=== PATIENT | female | born 1965 | race Caucasian/White ===

== ENCOUNTER → 2018-04-10 10:20 | Outpatient (CLI) | payer OTHER, SELFPAY ==
[2018-04-10 12:48] LABS: Anion Gap 7 (5-15); BUN 17 mg/dL (7-18); BUN/Creat Ratio 24.2 RATIO (10-20); Calcium,Total 8.7 mg/dL (8.5-10.1); Chloride 104 mmol/L (98-107); EST Glomerular Filtration Rate 92 mL/min (>60); Est Glom Filt Rate - Afr Amer 112 mL/min (>60); Glucose 100 mg/dL (74-106); Potassium 4.1 mmol/L (3.5-5.1); Sodium Level 139 mmol/L (136-145); Thyroid Stim Hormone (TSH) 1.15 uIU/mL (0.358-3.74)
--- OUTSIDE RECORDS SUMMARY | 2018-06-05 05:59 | XMS RPT_ITS ---
:1965 Author Organization OHIP Care Team Providers Name Role Phone NELLIE LAO MD Admitting Unavailable NELLIE LAO MD Attending Unavailable NELLIE LAO MD Primary Care Unavailable NELLIE LAO MD Consulting Unavailable PROVIDER, UNKNOWN Consulting Unavailable PROVIDER, UNKNOWN Consulting Unavailable NELLIE LAO MD Admitting Unavailable NELLIE LAO MD Attending Unavailable NELLIE LAO MD Primary Care Unavailable NELLIE LAO MD Consulting Unavailable PROVIDER, UNKNOWN Consulting Unavailable PROVIDER, UNKNOWN Consulting Unavailable Nellie Lao Attending Unavailable Nellie Lao Referring Unavailable Nellie Lao Primary Care Unavailable PROBLEMS PROBLEMS DATE TYPE CONDITION / ATTENDING STATUS SOURCE CODE 01/01/2018 Admitting Encounter for NELLIE LAO Active Lillie Pomerene Diagnosis screening [facility] mammogram for [facility] malignant Repository neoplasm of breast / Z1231(ICD-10) 01/01/2018 Principle Encounter for NELLIE LAO Active Lillie Pomerene Diagnosis screening [facility] mammogram for [facility] malignant Repository neoplasm of breast / Z1231(ICD-10) PROCEDURES PROCEDURES No Procedure Records FoundRESULTS RESULTS BASIC METABOLIC Collected: 04/10/2018 Status: F Source: JONG PROFILE (BMP) 10:38 AM [facility] [place] CODE TESTS RESULT OUT OF RANGE REFERENCE UNITS LAB L501.0100 74-106 mg/dL Normal GLU 100 Result Comment: Fasting Glucose result from 100 to 125 mg/dL suggests IMPAIRED HOMEOSTASIS per A.D.A. criteria. Please note revised GLUCOSE reference range effective 2017. LAB L501.1000 7-18 mg/dL Normal BUN 17 LAB L501.1100 0.55-1.02 mg/dL Normal CREAT,SERUM 0.70 Result Comment: The validity of the calculated GFR AND GFRAA in patients over 70 years has not been determined. Clinical correlation is essential. LAB L501.1110 >60 mL/min Normal EST GFR 92 Result Comment: Non- GFR Calc LAB L501.1115 >60 mL/min Normal EST GFR - AA 112 Result Comment: GFR Calc LAB L501.1300 10-20 RATIO High BUN/CRE 24.2 LAB L501.2200 8.5-10.1 mg/dL CA Normal 8.7 LAB L501.5300 136-145 mmol/L NA Normal 139 LAB L501.5600 3.5-5.1 mmol/L K Normal 4.1 LAB L501.5900 98-107 mmol/L CL Normal 104 LAB L501.6100 21.0-32.0 mmol/L Normal CO2 28.0 LAB L501.6200 5-15 Normal GAP 7 Performed By: #### L500.2500, L501.9520 #### [facility] [address] [place], [place], [address] THYROID STIM HORMONE Collected: 04/10/2018 Status: F Source: JONG (TSH) 10:38 AM [facility] [place] CODE TESTS RESULT OUT OF RANGE REFERENCE UNITS LAB L501.9520 0.358-3.74 uIU/mL Normal TSH 1.15 Performed By: #### L500.2500, L501.9520 #### [facility] [address] [place], [address] MAMM DIGITAL BILAT Observed: 01/01/2018 Status: F Source: LILLIE MONTOYA SCREEN 3:[address] [facility] [address] [place], [place] [address] Patient: KISHA SORIANO Phone#: : 1965 Age: 52 Gender: F Pt. Type: Out Account: [id number] Location: 052 Ordering: NELLIE LAO Exam Date: 01/01/2018/15:03 Family Phys: Charge Code: [id number] Physician: [place] Order #: [id number] DLP Dose#: PROCEDURE: MAMM BILAT DIGITAL SCREENING WITH CAD COMPARISON: [facility] dated 1027 2014 and June 132013. INDICATIONS: Screening BREAST COMPOSITION: Scattered fibroglandular densities (25-50% glandular). FINDINGS: DIAGNOSTIC CATEGORY 1--NEGATIVE ASSESSMENT. RIGHT BREAST: No significant suspicious finding. No significant change has occurred. LEFT BREAST: No significant suspicious finding. No significant change has occurred. RECOMMENDATIONS: ROUTINE MAMMOGRAM AND CLINICAL EVALUATION. PLEASE NOTE: A NORMAL MAMMOGRAM DOES NOT EXCLUDE THE POSSIBILITY OF BREAST CANCER. A CLINICALLY SUSPICIOUS PALPABLE LUMP SHOULD BE BIOPSIED. THIS FACILITY UTILIZES A REMINDER SYSTEM TO ENSURE THAT ALL PATIENTS RECEIVE REMINDER LETTERS FOR APPOINTMENTS. THIS INCLUDES REMINDERS FOR ROUTINE MAMMOGRAMS, DIAGNOSITC MAMMOGRAMS, OR OTHER BREAST IMAGING INTERVENTIONS WHEN APPROPRIATE. THIS PATIENT WILL BE PLACED IN THE APPROPRIATE REMINDER SYSTEM. Dictated by: Kristin Vega MD on 01/16/2018 at 14:34 Approved by: Kristin Vega MD on 01/16/2018 at 14:34 ALLERGIES ALLERGIES DATE TYPE / CODE NAME / CODE REACTION SEVERITY SOURCE Miscellaneous No Known Drug Moderate Lillie Pomchad Allergy/[id number](S Allergies ([facility]) Modifier) Hospital (Qualifier Repository Value) ENCOUNTERS ENCOUNTERS ADMIT/DISCHARGE ACCOUNT ADMITTING ENCOUNTER LOCATION SOURCE NUMBER CLASS 04/10/2018 [id number] Ambulatory [address] ing:MTLAB Repository 01/01/2018/ [id number] PREFREN, Ambulatory Lillie Pomchad 8 [facility] Repository 05/13/2017/ [id number] PREFREN, Ambulatory Lillie Pomchad 8 [facility] Repository PAYERS PAYERS ENCOUNTER GUARANTOR PAYER SUBSCRIBER SOURCE 04/10/2018 PARIS Araujo Primary Insurance:VERÓNICA DASILVAB: Jong [id number] [facility] [id number] [address], Number: [facility] [place] [address]Rai: [id number] Repository Date:3689-01-43[address]OX (HP) [id number], [place] [address]JS: 04/10/2018 Secondary NOT GIVENUNK Jong Insurance:SELF PAY [facility] Number: Effective Repository Date:2018-04-10 01/01/2018 KISHA Acosta Primary Insurance:THE KISHA DASILVAB: Lillie DASILVAB: [facility] [id number] [facility] [id number] [address] Number: [address] [place] [address], Repository [address] [place] [id number] [id number] [place] [id number]: Date:[id number], [place] () [id number]: 05/13/2017 KISHA Acosta Primary Insurance:THE KISHA DASILVAB: Lillie GROVE: VERÓNICA [facility] [id number] Memorial [id number] [address] Number: [address] [place] [address], Repository [address] [place] [id number] [place] [id number] [place] [id number]: Date:[id number], [place] () [id number]:
== END ==
PROVIDERS: Family Provider Family Medicine; PCP Family Medicine; Referring Provider Family Medicine; Visit Provider Family Medicine
DX: I10 Essential (primary) hypertension (principal); E03.9 Hypothyroidism, unspecified
CPT/HCPCS: 36415; 80048; 84443

== ENCOUNTER → 2018-05-02 16:40 | Outpatient (CLI) | payer OTHER, SELFPAY ==
[2018-05-02 11:24] VITALS: BMI 47.0
== END ==
PROVIDERS: Family Provider Family Medicine; PCP Family Medicine; Referring Provider Physician Assistant Surgical; Visit Provider Physician Assistant Surgical
DX: J02.9 Acute pharyngitis, unspecified (principal)
CPT/HCPCS: 87081

== ENCOUNTER → 2018-10-01 13:13 | Outpatient (CLI) | payer OTHER, SELFPAY ==
[2018-05-02 11:24] VITALS: BMI 47.0
[2018-10-08 17:10] LABS: HPV HC, High Risk Negative (Negative)
== END ==
PROVIDERS: Family Provider Family Medicine; PCP Family Medicine; Visit Provider Family Medicine
DX: Z12.4 Encounter for screening for malignant neoplasm of cervix (principal)
CPT/HCPCS: 87624; 88175; G0145

== ENCOUNTER → 2019-04-30 09:57 | Outpatient (CLI) | payer OTHER, SELFPAY ==
[2019-04-02 16:02] VITALS: BMI 47.0
[2019-04-30 12:26] LABS: ALB/GLOB Ratio 0.9 RATIO (0.9-2.4); AST(SGOT) 21 U/L (15-37); Alanine Aminotransfer ALT/SGPT 29 U/L (13-56); Albumin, Serum 3.6 g/dL (3.2-5.0); Alkaline Phosphatase 80 U/L (45-117); Anion Gap 3 (5-15); BUN 15 mg/dL (7-18); BUN/Creat Ratio 20.1 RATIO (10-20); Calcium,Total 8.4 mg/dL (8.5-10.1); Chloride 104 mmol/L (98-107); Cholesterol 154 mg/dL (200); Creatinine, Serum 0.75 mg/dL (0.55-1.02); EST Glomerular Filtration Rate 86 mL/min (>60); Est Glom Filt Rate - Afr Amer 104 mL/min (>60); Globulin 3.9 g/dL (2.2-4.2); Glucose 101 mg/dL (74-106); High Density Lipoprotein 53 mg/dL; Potassium 3.9 mmol/L (3.5-5.1); Protein, Total 7.5 g/dL (6.4-8.2); Sodium Level 137 mmol/L (136-145); Thyroid Stim Hormone (TSH) 1.98 uIU/mL (0.358-3.74); Triglycerides 70 mg/dL; Very Low Density Lipoprotein 14 mg/dL (5-40)
[2019-04-30 12:27] LABS: Absolute Lymphocyte Count 1.53 X10^3/uL (0.83-4.51); Absolute Neutrophil Count 3.2 X10^3/uL (2.0-7.7); Basophil# 0.03 X10^3/uL; Basophil% 0.5 % (0-1); Eosinophil# 0.25 X10^3/uL; Eosinophils% 4.6 % (0-5); Hematocrit 40.9 % (37-47); Hemoglobin 13.4 g/dL (12.0-15.0); Lymphocyte # 1.53 X10^3/ul (4.0); Lymphocyte % 27.9 % (19-41); Mean Corp Hgb Conc 32.8 g/dL (32-36); Mean Corpuscular Hgb 28.6 pg (27.0-32.0); Mean Corpuscular Volume 87.2 fL (81-99); Mean Platelet Vol. 10.4 fl (6.2-12.0); Monocyte# 0.46 X10^3/uL; Monocyte% 8.4 % (0-10); NRBC Flagged by Analyzer 0 % (0-5); Neutrophil # 3.21 X10^3/uL (2.7-7.7); Neutrophil % 58.4 % (47-70); Platelet Count 277 K/mm3 (150-450); RBC Distribution Width CV 13.1 % (11.6-14.6); RBC Distribution Width SD 41.3 fl (35.1-43.9); Red Blood Count 4.69 M/mm3 (4.2-5.4); White Blood Count 5.5 K/mm3 (4.4-11.0)
== END ==
PROVIDERS: Family Provider Family Medicine; PCP Family Medicine; Referring Provider Family Medicine; Visit Provider Family Medicine
DX: I10 Essential (primary) hypertension (principal); E03.9 Hypothyroidism, unspecified; R73.01 Impaired fasting glucose
CPT/HCPCS: 36415; 80053; 80061; 84443; 85025

== ENCOUNTER → 2020-05-26 13:16 | Outpatient (CLI) | payer OTHER, SELFPAY ==
[2019-04-02 16:02] VITALS: BMI 47.0
[2020-05-26 15:05] LABS: Absolute Lymphocyte Count 1.59 X10^3/uL (0.83-4.51); Absolute Neutrophil Count 3.1 X10^3/uL (2.0-7.7); Basophil# 0.06 X10^3/uL; Basophil% 1.1 % (0-1); Eosinophil# 0.23 X10^3/uL; Eosinophils% 4.1 % (0-5); Hematocrit 42.3 % (37-47); Hemoglobin 13.5 g/dL (12.0-15.0); Lymphocyte # 1.59 X10^3/ul (4.0); Lymphocyte % 28.1 % (19-41); Mean Corp Hgb Conc 31.9 g/dL (32-36); Mean Corpuscular Volume 87.6 fL (81-99); Mean Platelet Vol. 10.8 fl (6.2-12.0); Monocyte# 0.64 X10^3/uL; Monocyte% 11.3 % (0-10); NRBC Flagged by Analyzer 0 % (0-5); Neutrophil # 3.11 X10^3/uL (2.7-7.7); Platelet Count 309 K/mm3 (150-450); RBC Distribution Width CV 13.2 % (11.6-14.6); RBC Distribution Width SD 42.6 fl (35.1-43.9); Red Blood Count 4.83 M/mm3 (4.2-5.4); White Blood Count 5.7 K/mm3 (4.4-11.0)
[2020-05-26 15:20] LABS: ALB/GLOB Ratio 0.9 RATIO (0.9-2.4); AST(SGOT) 19 U/L (15-37); Alanine Aminotransfer ALT/SGPT 28 U/L (13-56); Albumin, Serum 3.8 g/dL (3.2-5.0); Alkaline Phosphatase 90 U/L (45-117); Anion Gap 4 (5-15); BUN 16 mg/dL (7-18); BUN/Creat Ratio 20.1 RATIO (10-20); Calcium,Total 9.1 mg/dL (8.5-10.1); Chloride 102 mmol/L (98-107); EST Glomerular Filtration Rate 79 mL/min (>60); Est Glom Filt Rate - Afr Amer 96 mL/min (>60); Globulin 4.2 g/dL (2.2-4.2); Glucose 91 mg/dL (74-106); Potassium 4.2 mmol/L (3.5-5.1); Sodium Level 136 mmol/L (136-145)
== END ==
PROVIDERS: PCP Family Medicine; Visit Provider Family Medicine
DX: R73.01 Impaired fasting glucose (principal); E03.9 Hypothyroidism, unspecified; I10 Essential (primary) hypertension
CPT/HCPCS: 36415; 80053; 84443; 85025

== ENCOUNTER → 2020-12-20 15:52 | Outpatient (CLI) | payer OTHER, SELFPAY ==
[2019-04-02 16:02] VITALS: BMI 47.0
[2020-12-20 17:59] LABS: Anion Gap 8 (5-15); BUN 18 mg/dL (7-18); BUN/Creat Ratio 20.3 RATIO (10-20); Calcium,Total 8.9 mg/dL (8.5-10.1); Chloride 103 mmol/L (98-107); Creatinine, Serum 0.89 mg/dL (0.55-1.02); EST Glomerular Filtration Rate 70 mL/min (>60); Est Glom Filt Rate - Afr Amer 85 mL/min (>60); Glucose 105 mg/dL (74-106); Potassium 3.7 mmol/L (3.5-5.1); Sodium Level 138 mmol/L (136-145)
[2020-12-20 18:07] LABS: Vitamin B12 955 pg/mL (211-911); Vitamin D,25 Hydroxy 43.4 ng/mL
== END ==
PROVIDERS: PCP Family Medicine; Referring Provider Family Medicine; Visit Provider Family Medicine
DX: I10 Essential (primary) hypertension (principal); E55.9 Vitamin D deficiency, unspecified; E53.8 Deficiency of other specified B group vitamins
CPT/HCPCS: 36415; 80048; 82306; 82607

== ENCOUNTER → 2021-01-20 15:22 | Outpatient (CLI) | payer OTHER, SELFPAY | PROVIDERS: PCP Family Medicine; Referring Provider Nurse Practitioner Family; Visit Provider Nurse Practitioner Family | DX: U07.1 COVID-19 (principal) | CPT/HCPCS: 87635; U0005; U0003 ==

== ENCOUNTER 2021-12-06 12:40 | Emergency (ER) | payer OTHER, SELFPAY ==
[2021-12-06 12:40] VITALS: BP 134/98; PULSE 114; RESP 22; TEMP 37.4; O2SAT 97; BMI 49.3
--- NOTE | 2021-12-06 14:13 | VDLE_ITS ---
Reason For Study: Swelling RIGHT GSV is normal. CFV is compressible, spontaneous, phasic, competent and demonstrates normal augmentation. FV is compressible, spontaneous, phasic, competent and demonstrates normal augmentation. FV mid visualized with color only, patient unable to tolerate compression. POP V is compressible, spontaneous, phasic, competent and demonstrates normal augmentation. T/P Trunk is compressible. PTV is compressible. RT PerV is compressible. Procedure This is a venous duplex using B-mode, color flow and spectral Doppler. Exam performed portable in ED. A preliminary report was called and/or faxed to Bull. VL/Venous Duplex US, Unilateral Interpretation Summary Deep veins of the right lower extremity are patent and compressible segmentally . There is no evidence of right lower extremity deep vein thrombosis. The right great sapheno us vein appears patent and compressible segmentally. Limited due to intolerance of compression Ordering Physician: Garrett Pelayo Referring Physician: Nellie Lao Performed By: Shabana Yeager RVT
[2021-12-06 14:22] VITALS: TEMP 37.1
[2021-12-06] MEDS: Acetaminophen 500 MG Tablet 1000 MG PO (14:27)
--- NOTE | 2021-12-06 14:27 | EDS_ITS ---
HPI <LEVON Al - Last Filed: 12/06/21 16:01> History of Present Illness Chief Complaint: Lower Extremity Injury Narrative Narrative: 56-year-old female with history of obesity, hypothyroidism, CAD, hypertension, arthritis presents to the emergency department with 2 to 3 days of worsening pain to the right lower extremity. Patient developed right lower extremity pain 2 days ago, patient states that last evening after work she had redness to the right calf. Patient states that over the last 24 hours she has had sweats, had chills, and has felt fatigued. Patient denies any nausea or vomiting. Patient denies any chest pain or shortness of breath PFS <LEVON Al - Last Filed: 12/06/21 16:01> [facility] Medical History (Updated 12/06/21 @ 16:[address] Anselmo Bull MD) Hypertension Thyroid disease Home Medications citalopram 10 mg tablet 10 mg PO DAILY 05/02/18 [History Last Taken Unknown] levothyroxine 25 mcg capsule 25 mcg PO DAILY 05/02/18 [History Last Taken Unknown] lisinopril 10 mg tablet 10 mg PO DAILY 05/02/18 [History Last Taken Unknown] metoprolol tartrate 25 mg tablet 25 mg PO BID 05/02/18 [History Last Taken Unknown] albuterol sulfate 90 mcg/actuation aerosol inhaler 2 puff inhalation Q6H PRN shortness of breath or wheezing #8.5 grams 01/20/21 [Rx Last Taken Unknown] cholecalciferol (vitamin D3) 50 mcg (2,000 unit) capsule 50 mcg PO DAILY 03/28/21 [History Last Taken Unknown] vitamin B complex (B Complex-Vitamin B12 tablet) 1 tab PO DAILY 03/28/21 [History Last Taken Unknown] zinc 50 mg tablet 50 mg PO DAILY 03/28/21 [History Last Taken Unknown] cephalexin 500 mg capsule 500 mg PO Q6 #40 caps 12/06/21 [Rx Last Taken Unknown] sulfamethoxazole 800 mg-trimethoprim 160 mg tablet (Bactrim DS) 1 tab PO BID #20 tabs 12/06/21 [Rx Last Taken Unknown] Allergy/AdvReac Type Severity Reaction Status Date / Time No Known Allergies Allergy Verified 12/06/21 12:40 Family History (Updated 03/28/21 @ 14:59 by Radha Caba) Other Breast cancer Cancer Colon cancer Heart disease Surgical History History of delivery History of tonsillectomy Social History Smoking Status: Former smoker alcohol intake: never ROS <LEVON Al - Last Filed: 12/06/21 16:01> ROS ED ROS Narrative Constitutional: Negative for, weight loss, weakness. Positive fever and chills Eyes: Negative for vision loss, vision change, double vision ENT: Negative for any sore throat, ear pain, congestion Cardiovascular: Negative for any chest pain, tightness, palpitations Respiratory: Negative for any cough, sputum production, hemoptysis, dyspnea, dyspnea on exertion, orthopnea Gastrointestinal: Negative for any abdominal pain, nausea, vomiting, diarrhea, constipation, blood in stool, blood in vomit : Negative for any urinary frequency, dysuria, retention, blood in urine Muscle skeletal: Negative for any muscle joint pain, stiffness, myalgias, arthralgias, neck pain, back pain. Positive right leg pain Neurological: Negative for any headache, syncope, numbness or tingling, dizziness Skin: Negative for any rashes, lumps, itching, abrasions, lacerations. Positive for redness, pain to the right lower extremity Psychiatric: Negative for any depression, anxiety, stress, suicidal ideation, homicidal ideation Hematologic: Negative for any easy bruising, excessive bruising, easy bleeding Allergies: Negative for any eczema, hives, rash EXAM <LEVON Al - Last Filed: 12/06/21 16:01> Physical Exam Narrative Exam Narrative: Vital signs reviewed. Patient is tachycardic, fever greater than 100 HEET: Head normocephalic atraumatic, TMs clear bilaterally. Posterior pharynx is clear, moist mucous membranes. Nares clear bilaterally. Neck: Supple with no lymphadenopathy or tenderness. No signs of meningismus, negative jolt sign. Cardiac: Regular rate and rhythm no murmurs gallops or rubs, equal peripheral pulses bilaterally. Respiratory: Lungs clear to auscultation bilaterally. No chest tenderness. Abdomen: Soft, nontender, nondistended. No abdominal bruit or pulsatile masses. No hepatosplenomegaly Extremities: Patient has some venous insufficiency to bilateral lower extremities, patient's right lower extremity however shows some erythema, slight more edema, painful on palpation. Patient has neurologic and vascular intact. +2 pedal pulse. Patient has significant pain to the calf of the right lower extremity, this is more red, swollen, warm to touch. Physical examination is consistent with cellulitis, is circumferential. Neuro: Cranial nerves II through XII intact, no focal neurological deficits. Skin: Clean dry and intact with no rash, purpura, petechiae, vesicles or pustules. Backs/flank: No CVA tenderness, no midline spinal tenderness, no deformity. Psych: Normal mood and affect. No SI, HI or acute psychosis. Const Vital Signs: 12/06/21 12:40 12/06/21 14:22 12/06/21 14:26 Temperature 99.4 F H 98.7 F Temperature Source Temporal Oral Pulse Rate 114 H Respiratory Rate 22 H Blood Pressure 134/98 H Blood Pressure Mean 110 Pulse Ox 97 Oxygen Delivery Method Room Air Room Air 12/06/21 15:08 Temperature Temperature Source Pulse Rate 95 Respiratory Rate 16 Blood Pressure 122/73 H Blood Pressure Mean 89 Pulse Ox 96 Oxygen Delivery Method Room Air <Dr. Anselmo Bull MD - Last Filed: 12/06/21 16:31> Physical Exam Const Vital Signs: 12/06/21 12:40 12/06/21 14:22 12/06/21 14:26 Temperature 99.4 F H 98.7 F Temperature Source Temporal Oral Pulse Rate 114 H Respiratory Rate 22 H Blood Pressure 134/98 H Blood Pressure Mean 110 Pulse Ox 97 Oxygen Delivery Method Room Air Room Air 12/06/21 15:08 Temperature Temperature Source Pulse Rate 95 Respiratory Rate 16 Blood Pressure 122/73 H Blood Pressure Mean 89 Pulse Ox 96 Oxygen Delivery Method Room Air VICKY <LEVON Al - Last Filed: 12/06/21 16:01> VICKY Lab Data Labs: Laboratory Results - last 24 hr 12/06/21 12/06/21 12/06/21 14:40 14:40 14:40 WBC 7.8 RBC 4.35 Hgb 12.8 Hct 37.8 MCV 86.9 MCH 29.4 MCHC 33.9 RDW Std Deviation 42.4 RDW Coeff of Inez 13.4 Plt Count 263 MPV 10.8 Immature Gran % (Auto) 0.300 Neut % (Auto) 72.9 H Lymph % (Auto) 13.6 L [place] % (Auto) 11.7 H Eos % (Auto) 1.2 Baso % (Auto) 0.3 Absolute Neuts (auto) 5.7 Absolute Lymphs (auto) 1.06 Nucleated RBC % 0 Sodium 132 L Potassium 4.2 Chloride 100 Carbon Dioxide 25.0 Anion Gap 7 BUN 19 H Creatinine 0.97 Estim Creat Clear Calc 66.87 Est GFR (MDRD) Af Amer 76 Est GFR (MDRD) Non-Af 63 BUN/Creatinine Ratio 19.6 Glucose 112 H Lactic Acid 1.0 Calcium 9.1 Total Bilirubin 1.00 AST 17 ALT 20 Alkaline Phosphatase 84 Total Protein 7.7 Albumin 3.5 Globulin 4.2 Albumin/Globulin Ratio 0.8 L Patient appears well, patient appears nontoxic, vital signs are stable. Patient presents to the emergency department with complaints of fevers, feeling of chills, redness to her right lower extremity. Patient did receive a venous duplex which was negative. Patient's physical examination is consistent with cellulitis of the right lower extremity. I did obtain a septic work-up with 2 sets of blood cultures, patient CBC was unremarkable, patient's chemistries were unremarkable, patient's lactic acid was negative. At this time, I do not believe that the patient is in any form of sepsis. The patient received IV fluids, Tylenol, IV clindamycin. Patiently placed on Bactrim, Keflex for 10 days, she will follow-up closely with her PCP. She was given strict return precaution to return for any worsening redness, fever chills nausea vomiting Radiography Diagnostic Testing: Clinical Impression(s) from Imaging Studies Venous Doppler Study 12/06/21 14:13 Interpretation Summary Deep veins of the right lower extremity are patent and compressible segmentally. There is no evidence of right lower extremity deep vein thrombosis. The right great saphenous vein appears patent and compressible segmentally. Limited due to intolerance of compression Ordering Physician: Garrett Pelayo Referring Physician: Nellie Lao Performed By: Shabana Yeager RVT <Dr. Anselmo Bull MD - Last Filed: 12/06/21 16:31> [facility] MDM Narrative Medical decision making narrative: I have personally performed a face to face assessment of the patient and have reviewed the HARJEET Note. I performed a substantive portion of the visit including all aspects of the following. My genao findings include: History is remarkable for swelling redness right lower extremity. Patient does have history of venous stasis dermatitis. She reports shaking chills. She denies documented fever. There is no history of trauma. She denies history of VTE. patient presently denies cough or shortness of breath. She denies upper respiratory infectious symptoms. She denies GI or symptoms. Exam is remarkable for swelling of the right lower extremity with evidence of cellulitis. There is tenderness on the distribution deep venous system. Vital signs are marked for tachycardia and tachypnea. This may be due to sepsis. If patient has a DVT would need to consider PE. Medical Decision Making venous duplex rule out DVT, laboratory studies to determine if patient can be treated safely as an outpatient versus inpatient. Other additions or changes: Patient was treated with cephalexin and Bactrim for streptococcal and staphylococcal coverage. Patient is a candidate for outpatient therapy. Lab Data Labs: Laboratory Results - last 24 hr 12/06/21 12/06/21 12/06/21 14:40 14:40 14:40 WBC 7.8 RBC 4.35 Hgb 12.8 Hct 37.8 MCV 86.9 MCH 29.4 MCHC 33.9 RDW Std Deviation 42.4 RDW Coeff of Inez 13.4 Plt Count 263 MPV 10.8 Immature Gran % (Auto) 0.300 Neut % (Auto) 72.9 H Lymph % (Auto) 13.6 L [place] % (Auto) 11.7 H Eos % (Auto) 1.2 Baso % (Auto) 0.3 Absolute Neuts (auto) 5.7 Absolute Lymphs (auto) 1.06 Nucleated RBC % 0 Sodium 132 L Potassium 4.2 Chloride 100 Carbon Dioxide 25.0 Anion Gap 7 BUN 19 H Creatinine 0.97 Estim Creat Clear Calc 66.87 Est GFR (MDRD) Af Amer 76 Est GFR (MDRD) Non-Af 63 BUN/Creatinine Ratio 19.6 Glucose 112 H Lactic Acid 1.0 Calcium 9.1 Total Bilirubin 1.00 AST 17 ALT 20 Alkaline Phosphatase 84 Total Protein 7.7 Albumin 3.5 Globulin 4.2 Albumin/Globulin Ratio 0.8 L Radiography Diagnostic Testing: Clinical Impression(s) from Imaging Studies Venous Doppler Study 12/06/21 14:13 Interpretation Summary Deep veins of the right lower extremity are patent and compressible segmentally. There is no evidence of right lower extremity deep vein thrombosis. The right great saphenous vein appears patent and compressible segmentally. Limited due to intolerance of compression Ordering Physician: Garrett Pelayo Referring Physician: Nellie Lao Performed By: Shabana Yeager RVT Discharge Plan Triage Chief Complaint: Lower Extremity Injury ED Midlevel Provider: Garrett Pelayo ED Provider: Anselmo Bull Dx/Rx/DC Orders Clinical Impression: Cellulitis of leg, right, Hypothyroidism, Diabetes mellitus, type 2, Sinus tachycardia Instructions: Discharge Instructions for ..., ED Cellulitis Prescriptions: New cephalexin 500 mg capsule 500 mg PO Q6 Qty: 40 0RF sulfamethoxazole-trimethoprim [Bactrim DS] 800-160 mg tablet 1 tab PO BID Qty: 20 0RF No Action levothyroxine 25 mcg capsule 25 mcg capsule 25 mcg PO DAILY metoprolol tartrate 25 mg tablet 25 mg PO BID lisinopril 10 mg tablet 10 mg PO DAILY citalopram 10 mg tablet 10 mg PO DAILY albuterol sulfate 90 mcg/actuation HFA aerosol inhaler 2 puff inhalation Q6H PRN (Reason: shortness of breath or wheezing) Qty: 8.5 0RF zinc 50 mg tablet 50 mg PO DAILY cholecalciferol (vitamin D3) 50 mcg (2,000 unit) capsule 50 mcg PO DAILY vitamin B complex [B Complex-Vitamin B12] Tablet 1 tab PO DAILY Stand Alone Forms: ED Work / School Excuse Primary Care Provider: Nellie Lao Referrals: Nellie Lao MD [Primary Care Provider] - Activity Restrictions/Additional Instructions: You must return here for worsening redness, fever, chills. Print Language: Malian Disposition Disposition: Home, Self Care Discharge Date/Time: 12/06/21 16:18
[2021-12-06 15:04] LABS: Absolute Lymphocyte Count 1.06 X10^3/uL (0.83-4.51); Absolute Neutrophil Count 5.7 X10^3/uL (2.0-7.7); Basophil# 0.02 X10^3/uL; Basophil% 0.3 % (0-1); Eosinophil# 0.09 X10^3/uL; Eosinophils% 1.2 % (0-5); Hematocrit 37.8 % (37-47); Hemoglobin 12.8 g/dL (12.0-15.0); Lymphocyte # 1.06 X10^3/ul (0.83-4.51); Lymphocyte % 13.6 % (19-41); Mean Corp Hgb Conc 33.9 g/dL (32-36); Mean Corpuscular Hgb 29.4 pg (27.0-32.0); Mean Corpuscular Volume 86.9 fL (81-99); Mean Platelet Vol. 10.8 fl (6.2-12.0); Monocyte# 0.91 X10^3/uL; Monocyte% 11.7 % (0-10); NRBC Flagged by Analyzer 0 % (0-5); Neutrophil # 5.68 X10^3/uL (2.7-7.7); Neutrophil % 72.9 % (47-70); Platelet Count 263 K/mm3 (150-450); RBC Distribution Width CV 13.4 % (11.6-14.6); RBC Distribution Width SD 42.4 fl (35.1-43.9); Red Blood Count 4.35 M/mm3 (4.2-5.4); White Blood Count 7.8 K/mm3 (4.4-11.0)
[2021-12-06] MEDS: 0.9% Normal Saline 1,000 ML 999 ML IV (15:04)
[2021-12-06] MEDS: Clindamycin 900 MG/50 ML BAG 75 MG IV (15:06)
[2021-12-06 15:08] VITALS: BP 122/73; PULSE 95; RESP 16; O2SAT 96
[2021-12-06 15:23] LABS: ALB/GLOB Ratio 0.8 RATIO (0.9-2.4); AST(SGOT) 17 U/L (15-37); Alanine Aminotransfer ALT/SGPT 20 U/L (13-56); Albumin, Serum 3.5 g/dL (3.2-5.0); Alkaline Phosphatase 84 U/L (45-117); Anion Gap 7 (5-15); BUN 19 mg/dL (7-18); BUN/Creat Ratio 19.6 RATIO (10-20); Calcium,Total 9.1 mg/dL (8.5-10.1); Chloride 100 mmol/L (98-107); Creatinine, Serum 0.97 mg/dL (0.55-1.02); EST Glomerular Filtration Rate 63 mL/min (>60); Est Glom Filt Rate - Afr Amer 76 mL/min (>60); Estimated Creatinine Clearance 66.87 ml/min; Globulin 4.2 g/dL (2.2-4.2); Glucose 112 mg/dL (74-106); Potassium 4.2 mmol/L (3.5-5.1); Protein, Total 7.7 g/dL (6.4-8.2); Sodium Level 132 mmol/L (136-145)
== END 2021-12-06 16:18 | disposition home or self-care (01) ==
PROVIDERS: Nurse Practitioner; Emergency Provider Emergency Medicine; PCP Family Medicine; Visit Provider Emergency Medicine
DX: L03.115 Cellulitis of right lower limb (principal); Z68.42 Body mass index [BMI] 45.0-49.9, adult; E11.9 Type 2 diabetes mellitus without complications; I25.10 Atherosclerotic heart disease of native coronary artery without angina pectoris; I10 Essential (primary) hypertension; E03.9 Hypothyroidism, unspecified; R00.0 Tachycardia, unspecified; Z87.891 Personal history of nicotine dependence; E66.9 Obesity, unspecified; M19.90 Unspecified osteoarthritis, unspecified site; Z79.899 Other long term (current) drug therapy
CPT/HCPCS: 80053; 83605; 85025; 87040; 87086; 87088; 93971; 96365; 99282

== ENCOUNTER 2022-08-02 07:46 | Emergency (ER) | payer OTHER, SELFPAY ==
[2022-08-02 07:47] VITALS: BP 156/106; PULSE 108; RESP 22; TEMP 36.6; O2SAT 97; BMI 56.9
[2022-08-02 07:55] VITALS: BP 177/98; PULSE 97; RESP 20; TEMP 36.6; O2SAT 98
--- NOTE | 2022-08-02 07:55 | ED.VIS.DYS ---
HPI History of Present Illness Chief Complaint: Shortness of Breath Narrative Narrative: 57-year-old female here with lower extremity edema and shortness of breath worse over last 2 weeks. She notes exertional dyspnea, orthopnea and bilateral symmetric leg swelling from ankles up to her mid calf. She denies any unilateral leg swelling. The patient denies recent surgery in the last 4 weeks or immobilization in the last 3 days, denies previous diagnosis of DVT or PE, hemoptysis, unilateral leg swelling or malignancy with treatment the last 6 months. No estrogen use noted. She denies any bleeding diathesis. She denies any chest pain. Notes her father of heart attack at 57 years old. States she does not smoke she has not smoked in 2003. Denies any nausea or vomiting. Denies any abdominal pain. Denies any urinary symptoms. [facility] Medical History (Updated 08/02/22 @ 10:[address] Surendra Philippe, ) Hypertension Thyroid disease Urinary tract infection with hematuria Home Medications citalopram 10 mg tablet 10 mg PO DAILY 05/02/18 [History Last Taken Unknown] levothyroxine 25 mcg capsule 25 mcg PO DAILY 05/02/18 [History Last Taken Unknown] lisinopril 10 mg tablet 10 mg PO DAILY 05/02/18 [History Last Taken Unknown] metoprolol tartrate 25 mg tablet 25 mg PO BID 05/02/18 [History Last Taken Unknown] albuterol sulfate 90 mcg/actuation aerosol inhaler 2 puff inhalation Q6H PRN shortness of breath or wheezing #8.5 grams 01/20/21 [Rx Last Taken Unknown] cholecalciferol (vitamin D3) 50 mcg (2,000 unit) capsule 50 mcg PO DAILY 03/28/21 [History Last Taken Unknown] vitamin B complex (B Complex-Vitamin B12 tablet) 1 tab PO DAILY 03/28/21 [History Last Taken Unknown] zinc 50 mg tablet 50 mg PO DAILY 03/28/21 [History Last Taken Unknown] cephalexin 500 mg capsule 500 mg PO Q6 #40 caps 12/06/21 [Rx Last Taken Unknown] sulfamethoxazole 800 mg-trimethoprim 160 mg tablet (Bactrim DS) 1 tab PO BID #20 tabs 12/06/21 [Rx Last Taken Unknown] albuterol sulfate 90 mcg/actuation aerosol inhaler 2 puff inhalation Q6H PRN shortness of breath or wheezing #6.7 grams 06/24/22 [Rx Last Taken Unknown] cephalexin 500 mg tablet 500 mg PO Q8H 7 days #21 tabs 08/02/22 [Rx Last Taken Unknown] furosemide 20 mg tablet (Lasix) 20 mg PO DAILY #14 tabs 08/02/22 [Rx Last Taken Unknown] Allergy/AdvReac Type Severity Reaction Status Date / Time No Known Allergies Allergy Verified 08/02/22 07:46 Family History (Updated 03/28/21 @ 14:59 by Radha Caba) Other Breast cancer Cancer Colon cancer Heart disease Surgical History History of delivery History of tonsillectomy Social History Smoking Status: Former smoker alcohol intake: never ROS ROS ED ROS Narrative Constitutional: Denies fever HEENT: Denies sore throat Neck: Denies neck pain Cardiovascular: Denies chest pain, syncope Respiratory: Endorses shortness of breath GI: Denies nausea vomiting or abdominal pain : Denies changes in urinary habits Musculoskeletal: Denies muscle or joint pain Neurologic: Denies numbness weakness or loss of sensation Skin denies rash EXAM Physical Exam Narrative Exam Narrative: Nursing triage notes reviewed, Vital signs reviewed Constitutional: please see mdm HENT: MMM Eyes: Pupils equal round and reactive to light, Extraocular muscles intact Neck: No stridor, no JVD, full neck ROM Lungs: Clear to auscultation, No wheezing or rales. No increased work of breathing, no conversational dyspnea, no accessory muscle use, no nasal flaring. No respiratory distress noted Heart: Regular rate and rhythm, No murmurs, No rubs and No gallops, 2+ distal pulses (radial, femoral, posterior tibial) in all extremities Abdomen: Soft, there is no tenderness, rigidity, rebound or guarding, no obvious peritoneal signs, no palpable pulsatile abdominal masses, no auscultated abdominal bruit : No CVAT Extremities: No edema Neuro: No focal neurological deficits, cranial nerves II through XII intact, 5/5 strength in all extremities. Intact sensation to light touch in all extremities, 2+ reflexes bilateral patella dens. Normal gait. No ataxia. Skin: No rash or lesions noted Const Vital Signs: 08/02/22 07:47 08/02/22 07:55 08/02/22 07:55 Temperature 98 F 98 F Temperature Source Temporal Temporal Pulse Rate 108 H 97 Respiratory Rate 22 H 20 H Respiratory Effort Short of Breath Labored Respiratory Depth Normal Respiratory Pattern Normal Blood Pressure 156/106 H 177/98 H Blood Pressure Mean 122 124 Pulse Ox 97 98 Oxygen Delivery Method Room Air Room Air Room Air 08/02/22 09:46 Temperature Temperature Source Pulse Rate Respiratory Rate Respiratory Effort Respiratory Depth Respiratory Pattern Blood Pressure Blood Pressure Mean Pulse Ox 96 Oxygen Delivery Method Room Air MDM MDM MDM Narrative Medical decision making narrative: Chief Complaint: Shortness of breath External records reviewed: Last stress test 2012, no recent ED visits or hospitalizations noted in our chart I considered the following differential diagnosis: COPD exacerbation, pneumonia, heart failure, ACS, arrhythmia, PE, anemia Patient was initially tachycardic tachypneic and hypertensive she was afebrile. Lung exam was more consistent with obstructive lung pathology however patient denied any issues with COPD, asthma or bronchitis in the past. I obtained a broad lab and imaging work-up to further elucidate etiology patient complaints. I had a low suspicion for pulmonary embolism given low risk Wells score despite the patient's initial tachycardia. I was more concerned about heart failure and COPD. Labs images were remarkable for no evidence of myocardial ischemia. EKG had no arrhythmia or ischemia. No significant anemia or electrolyte abnormalities. The patient's BNP was elevated this consistent with a volume overloaded state however the patient's chest x-ray showed no evidence of pulmonary edema. She ambulated here without significant hypoxia. Given the patient elevated BNP and bilateral lower extremity edema I did start the patient on a small dose of Lasix 20 mg daily for 14 days. She was concerned that she may have cellulitis associated no infectious signs no white count no fever there was some erythema noted over bilateral lower extremities which appear chronic and not acute however I did prescribe prophylactic antibiotics given the patient's history of diabetes, obesity. Patient was given strict return precautions and follow-up instructions. Patient agreed with the plan. Factors affecting care: History of COPD, obesity, type 2 diabetes, hypertension, hypothyroidism Social determinants of health: History obtained from others: Shared decision making: I will have a discussion with the patient and or visitors regarding risk/benefits of further testing or admission. They will be made aware of of the risk/benefits inherent in this decision they will be given the opportunity to voice understanding. Consults: None Lab Data Attestation: I reviewed the patient's lab results. Lab results narrative: CBC without leukocytosis, severe anemia, no thrombocytopenia. BMP without evidence of significant electrolyte abnormalities, no anion gap, no acute kidney injury. Troponin is negative, no evidence of myocardial ischemia BNP mildly elevated consistent with volume overload Labs: Laboratory Results - last 24 hr 08/02/22 08/02/22 08/02/22 08:15 08:15 08:15 WBC 6.5 RBC 4.61 Hgb 13.2 Hct 41.1 MCV 89.2 MCH 28.6 MCHC 32.1 RDW Std Deviation 43.6 RDW Coeff of Inez 13.4 Plt Count 283 MPV 9.8 Sodium 139 Potassium 4.4 Chloride 102 Carbon Dioxide 30.0 Anion Gap 7 BUN 19 H Creatinine 0.86 Estim Creat Clear Calc 74.52 Est GFR (MDRD) Af Amer 87 Est GFR (MDRD) Non-Af 72 BUN/Creatinine Ratio 22.1 H Glucose 158 H Calcium 9.3 Troponin I High Sens 6 B-Natriuretic Peptide 287.7 H Radiography Chest X-Ray - ED: Read by ED Physician Diagnostic Testing: Clinical Impression(s) from Imaging Studies Chest X-Ray 08/02/22 08:30 IMPRESSION: No acute abnormalities. Electronically Signed: Fam Mcintyre MD at 8:45 EDT Reading Location ID and State: [address] [place] [address] , Service support , I have personally reviewed the patient's chest x-ray. Chest x-ray is unremarkable for pulmonary edema, pneumothorax, pneumonia or focal cardiopulmonary abnormality. EKG Initial EKG: Attestation: I personally reviewed and interpreted this EKG as follows: Comments: EKG shows normal sinus rhythm, normal axis, prolonged QT interval, frequent PVCs, no STEMI Discharge Plan Triage Chief Complaint: Shortness of Breath ED Provider: Surendra Philippe Dx/Rx/DC Orders Clinical Impression: Bilateral edema of lower extremity Instructions: ED Peripheral Edema, Bilateral Prescriptions: New furosemide [Lasix] 20 mg tablet 20 mg PO DAILY Qty: 14 0RF cephalexin 500 mg tablet 500 mg PO Q8H 7 Days Qty: 21 0RF No Action levothyroxine 25 mcg capsule 25 mcg capsule 25 mcg PO DAILY metoprolol tartrate 25 mg tablet 25 mg PO BID lisinopril 10 mg tablet 10 mg PO DAILY citalopram 10 mg tablet 10 mg PO DAILY albuterol sulfate 90 mcg/actuation HFA aerosol inhaler 2 puff inhalation Q6H PRN (Reason: shortness of breath or wheezing) Qty: 8.5 0RF zinc 50 mg tablet 50 mg PO DAILY cholecalciferol (vitamin D3) 50 mcg (2,000 unit) capsule 50 mcg PO DAILY vitamin B complex [B Complex-Vitamin B12] Tablet 1 tab PO DAILY albuterol sulfate 90 mcg/actuation HFA aerosol inhaler 2 puff inhalation Q6H PRN (Reason: shortness of breath or wheezing) Qty: 6.7 0RF cephalexin 500 mg capsule 500 mg PO Q6 Qty: 40 0RF sulfamethoxazole-trimethoprim [Bactrim DS] 800-160 mg tablet 1 tab PO BID Qty: 20 0RF Stand Alone Forms: ED Work / School Excuse Primary Care Provider: Nellie Lao Referrals: Nellie Lao MD [Primary Care Provider] - Activity Restrictions/Additional Instructions: Thank you for trusting us with your care today! Please follow-up with your primary care physician for outpatient evaluation specifically to obtain an echocardiogram. Please take Lasix as prescribed. Please take all antibiotics until course complete. Please take Tylenol, ibuprofen every 6 hours as needed for pain control. Please elevate your legs at night. Please wear compression stockings. Please return to the ED if symptoms change or worsen in any way. Specifically if you lose consciousness, develop chest pain, worsening shortness of breath, your lips turn blue or if you are concerned in any way. Disposition Disposition: Home, Self Care
--- NOTE | 2022-08-02 08:07 | EKG12_ITS ---
Test Reason : SOB Blood Pressure : / mmHG Vent. Rate : 097 BPM Atrial Rate : 097 BPM P-R Int : 150 ms QRS Dur : 090 ms QT Int : 386 ms P-R-T Axes : 053 026 049 degrees QTc Int : 490 ms Sinus rhythm with frequent Premature ventricular complexes Inferior infarct , age undetermined Abnormal ECG Confirmed by JULES ARAUZ, JASMYN ([id number]), newspaper editor RYAN MATT ([id number]) on 08/05/2022 2:12:27 PM Referred By: Confirmed By:JASMYN VICENTE MD
[2022-08-02] MEDS: Ipratropium/Albuterol Sulfate 3 ML AMPUL.NEB INHALATION (08:14)
[2022-08-02 08:27] LABS: Hematocrit 41.1 % (37-47); Hemoglobin 13.2 g/dL (12.0-15.0); Mean Corp Hgb Conc 32.1 g/dL (32-36); Mean Corpuscular Hgb 28.6 pg (27.0-32.0); Mean Corpuscular Volume 89.2 fL (81-99); Mean Platelet Vol. 9.8 fl (6.2-12.0); Platelet Count 283 K/mm3 (150-450); RBC Distribution Width CV 13.4 % (11.6-14.6); RBC Distribution Width SD 43.6 fl (35.1-43.9); Red Blood Count 4.61 M/mm3 (4.2-5.4); White Blood Count 6.5 K/mm3 (4.4-11.0)
--- NOTE | 2022-08-02 08:30 | RAD_ITS ---
STUDY: X-RAY CHEST REASON FOR EXAM: Female, 57 years old. Shortness of breath, lower extremity edema TECHNIQUE: PA and lateral views of the chest. COMPARISON: None. FINDINGS: EKG electrodes are seen. The lungs are clear and expanded. Scattered calcified granulomas. There is no demonstrated pleural abnormality. Normal size heart. Normal mediastinum and micki. Normal visualized pulmonary arteries. Normal visualized aortic arch and descending thoracic aorta. There are diffuse degenerative changes of the visualized thoracic spine. There is degenerative osteoarthritis of the bilateral shoulders. There is no demonstrated abnormality of the visualized soft tissue structures of the upper abdomen. RAD/Chest PA and Lateral IMPRESSION: No acute abnormalities. Electronically Signed: Fam Mcintyre MD at 8:45 EDT ,
[2022-08-02 08:38] LABS: Anion Gap 7 (5-15); BUN 19 mg/dL (7-18); BUN/Creat Ratio 22.1 RATIO (10-20); Calcium,Total 9.3 mg/dL (8.5-10.1); Chloride 102 mmol/L (98-107); Creatinine, Serum 0.86 mg/dL (0.55-1.02); EST Glomerular Filtration Rate 72 mL/min (>60); Est Glom Filt Rate - Afr Amer 87 mL/min (>60); Estimated Creatinine Clearance 74.52 ml/min; Glucose 158 mg/dL (74-106); Potassium 4.4 mmol/L (3.5-5.1); Sodium Level 139 mmol/L (136-145); Troponin-I HS 6 pg/mL (3.0-54.0)
[2022-08-02 08:52] LABS: BNP,B-Type NATRIURETIC PEPTIDE 287.7 pg/mL (0-100)
[2022-08-02 09:46] VITALS: O2SAT 96
[2022-08-02 10:44] VITALS: BP 133/79; PULSE 85; RESP 16; O2SAT 97
== END 2022-08-02 10:45 | disposition home or self-care (01) ==
PROVIDERS: Emergency Provider Emergency Medicine; PCP Family Medicine; Visit Provider Emergency Medicine
DX: R06.02 Shortness of breath (principal); Z87.891 Personal history of nicotine dependence; R60.0 Localized edema; I10 Essential (primary) hypertension
CPT/HCPCS: 71046; 80048; 83880; 84484; 85027; 87428; 93005; 94640; 99284

== ENCOUNTER → 2022-08-09 | Outpatient (CLI) | payer OTHER, SELFPAY ==
[2022-08-09 12:43] LABS: BNP,B-Type NATRIURETIC PEPTIDE 136.7 pg/mL (0-100)
[2022-08-09 12:54] LABS: Anion Gap 7 (5-15); BUN 21 mg/dL (7-18); BUN/Creat Ratio 23.9 RATIO (10-20); Calcium,Total 9.7 mg/dL (8.5-10.1); Chloride 102 mmol/L (98-107); Creatinine, Serum 0.88 mg/dL (0.55-1.02); EST Glomerular Filtration Rate 70 mL/min (>60); Est Glom Filt Rate - Afr Amer 85 mL/min (>60); Glucose 132 mg/dL (74-106); Potassium 4.3 mmol/L (3.5-5.1); Sodium Level 137 mmol/L (136-145); Thyroid Stim Hormone (TSH) 3.53 uIU/mL (0.358-3.74)
[2022-08-09 13:21] LABS: Hemoglobin A1c 6.1 % (3.8-5.6)
== END | disposition home or self-care (01) ==
LOC: MTLAB 09:27
PROVIDERS: PCP Family Medicine; Referring Provider Family Medicine; Visit Provider Family Medicine
DX: I10 Essential (primary) hypertension (principal); E87.79 Other fluid overload; E03.9 Hypothyroidism, unspecified; R73.01 Impaired fasting glucose
CPT/HCPCS: 36415; 80048; 83036; 83880; 84443

== ENCOUNTER → 2022-08-22 | Outpatient (CLI) | payer OTHER, SELFPAY ==
--- NOTE | 2022-08-22 10:21 | ECHOCS_ITS ---
Reason For Study: SOB Procedure This was a 2D Doppler, Color Flow transthoracic echocardiogram. The study was technically difficult. Contrast injection was performed. Exam performed in department. Left Ventricle Normal size and thickness. The left ventricular ejection fraction is 65 %. Right Ventricle Mildly dilated right ventricle. Mild global right ventricular systolic dysfunction. Atria The left atrium is mildly enlarged. The right atrium is mildly enlarged. Mitral Valve Trivial mitral valve insufficiency. Tricuspid Valve Normal tricuspid valve. Aortic Valve The aortic valve is not well visualized in the short axis view. Mild Aortic valve stenosis by Doppler criteria. Pulmonic Valve The pulmonic valve is not well visualized. Great Vessels Normal sized aortic root. Pericardium/Pleural No pericardial effusion. Medication 22 gauge I.V. with prn adaptor inserted into right arm. Diluted definity 2.5ml given slow IV push to enhance endocardial definition. MMode/2D Measurements & Calculations LVIDd: 5.4 cm IVSd: 1.1 cm LVOT diam: 2.0 cm LVIDs: 4.1 cm LVPWd: 1.1 cm FS: 23.8 % LVOT area: 3.3 cm2 Ao root diam: 3.2 cm LA dimension: 4.3 cm Time Measurements MV dec time: 0.25 sec Doppler Measurements & Calculations MV E max vitor: 83.7 cm/sec Lat Peak E' Vitor: 10.5 cm/sec Med Peak E' Vitor: 9.9 cm/sec MV A max vitor: 94.3 cm/sec E/E' lat: 7.9 E/E' med: 8.4 MV E/A: 0.89 MV V2 max: 99.5 cm/sec MV P1/2t max vitor: 86.5 cm/sec Ao V2 max: 235.2 cm/sec MV max P.0 mmHg MV P1/2t: 78.2 msec Ao max P.2 mmHg MV V2 mean: 62.0 cm/sec Ao V2 mean: 168.7 cm/sec MV mean P.8 mmHg MV dec slope: 323.7 cm/sec2 Ao mean P.7 mmHg MV V2 VTI: 24.0 cm MVA(P1/2t): 2.8 cm2 Ao V2 VTI: 51.7 cm AV (velocity ratio): 0.51 MVA(VTI): 3.6 cm2 IZZY(I,D): 1.7 cm2 IZZY(V,D): 1.4 cm2 LV V1 max: 102.1 cm/sec SV(LVOT): 86.6 ml PA V2 max: 113.1 cm/sec LV V1 max P.2 mmHg PA V2 mean: 70.8 cm/sec LV V1 mean P.2 mmHg LV V1 mean: 69.4 cm/sec LV V1 VTI: 26.5 cm ECHO/Echo Complete W/ Contrast Interpretation Summary The study was technically difficult. The left ventricular ejection fraction is 65 %. Mildly dilated right ventricle. Mild global right ventricular systolic dysfunction. The left atrium is mildly enlarged. The right atrium is mildly enlarged. Mild Aortic valve stenosis by Doppler criteria Ordering Physician: Nellie Lao Performed By: Brodwolf, Sherif, RCS
== END | disposition home or self-care (01) ==
LOC: CVS 10:20
PROVIDERS: PCP Family Medicine; Visit Provider Family Medicine
DX: I50.9 Heart failure, unspecified (principal); R06.02 Shortness of breath
CPT/HCPCS: 93306; Q9957; A4216; C8929

== ENCOUNTER → 2022-09-10 | Outpatient (CLI) | payer OTHER, SELFPAY ==
--- NOTE | 2022-09-10 07:36 | CT_ITS ---
STUDY: CT CHEST WITHOUT CONTRAST REASON FOR EXAM: Female, 57 years old. CARDIOMEGALY. Hypertension. Shortness of breath. RADIATION DOSAGE (If Supplied By Facility): CTDIvol = ( 28.09 ) mGy, DLP = ( 878.74 ) mGycm TECHNIQUE: Transaxial imaging was performed without the administration of intravenous contrast material. Individualized dose optimization techniques were used for this CT. COMPARISON: Comparison is made with prior chest radiograph dated August 02, 2022. FINDINGS: CHEST Small benign-appearing bilateral axillary lymph nodes. Minimal increased markings in the anterior aspect of the right upper lobe. This may represent a focal area of mild scarring. Mild degree of increased markings are also seen in the posterior medial segment of the right lower lobe suggestive of scarring. No evidence of consolidation. There is no demonstrated pleural abnormality. There are calcifications of the coronary arteries. There are multiple small lymph nodes within the mediastinum, which are normal in size and morphology most compatible with reactive lymph hyperplasia. Normal hilar regions. Normal unenhanced pulmonary arteries. Normal aorta arch and descending thoracic aorta. There are degenerative changes of the thoracic spine. There is no demonstrated abnormality of the visualized upper abdomen. CT/Chest without Contrast IMPRESSION: No acute abnormality is seen. Electronically Signed: Fam Mcintyre MD at 13:13 EDT ,
== END | disposition home or self-care (01) ==
LOC: CT 07:35
PROVIDERS: PCP Family Medicine; Referring Provider Family Medicine; Visit Provider Family Medicine
DX: I51.7 Cardiomegaly (principal)
CPT/HCPCS: 71250

== ENCOUNTER → 2022-09-11 | Outpatient (CLI) | payer OTHER, SELFPAY | END | disposition home or self-care (01) | LOC: SL 19:40 | PROVIDERS: PCP Family Medicine; Referring Provider Family Medicine; Visit Provider Family Medicine | DX: I51.7 Cardiomegaly (principal); G47.33 Obstructive sleep apnea (adult) (pediatric) | CPT/HCPCS: 95810; 95811 ==

== ENCOUNTER → 2022-10-08 | Outpatient (CLI) | payer OTHER, SELFPAY | END | disposition home or self-care (01) | LOC: SL 19:44 | PROVIDERS: PCP Family Medicine; Visit Provider Family Medicine | DX: G47.33 Obstructive sleep apnea (adult) (pediatric) (principal) | CPT/HCPCS: 95811 ==

== ENCOUNTER → 2023-11-10 | Outpatient (CLI) | payer OTHER, SELFPAY ==
[2023-11-10 17:51] LABS: Absolute Neutrophil Count 6.1 X10^3/uL (2.0-7.7); Basophil# 0.07 X10^3/uL; Basophil% 0.7 % (0-1); Eosinophil# 0.26 X10^3/uL; Eosinophils% 2.8 % (0-5); Hematocrit 46.6 % (37-47); Hemoglobin 14.7 g/dL (12.0-15.0); Lymphocyte % 23.5 % (19-41); Mean Corp Hgb Conc 31.5 g/dL (32-36); Mean Corpuscular Hgb 28.3 pg (27.0-32.0); Mean Corpuscular Volume 89.6 fL (81-99); Mean Platelet Vol. 10.6 fl (6.2-12.0); Monocyte# 0.57 X10^3/uL; Monocyte% 6.1 % (0-10); NRBC Flagged by Analyzer 0 % (0-5); Neutrophil # 6.09 X10^3/uL (2.7-7.7); Platelet Count 372 K/mm3 (150-450); RBC Distribution Width CV 14.2 % (11.6-14.6); RBC Distribution Width SD 46.5 fl (35.1-43.9); White Blood Count 9.4 K/mm3 (4.4-11.0)
[2023-11-10 18:20] LABS: ALB/GLOB Ratio 0.8 RATIO (0.9-2.4); AST(SGOT) 18 U/L (15-37); Alanine Aminotransfer ALT/SGPT 26 U/L (13-56); Albumin, Serum 3.6 g/dL (3.2-5.0); Alkaline Phosphatase 120 U/L (45-117); Anion Gap 10 (5-15); BUN 14 mg/dL (7-18); BUN/Creat Ratio 14.4 RATIO (10-20); Calcium,Total 9.4 mg/dL (8.5-10.1); Chloride 101 mmol/L (98-107); Cholesterol 175 mg/dL (200); Creatinine, Serum 0.97 mg/dL (0.55-1.02); EST Glomerular Filtration Rate 62 mL/min (>60); Est Glom Filt Rate - Afr Amer 75 mL/min (>60); Globulin 4.8 g/dL (2.2-4.2); Glucose 120 mg/dL (74-106); High Density Lipoprotein 56 mg/dL; Potassium 3.6 mmol/L (3.5-5.1); Protein, Total 8.4 g/dL (6.4-8.2); Sodium Level 137 mmol/L (136-145); Thyroid Stim Hormone (TSH) 5.87 uIU/mL (0.358-3.74); Triglycerides 102 mg/dL; Very Low Density Lipoprotein 20 mg/dL (5-40)
== END | disposition home or self-care (01) ==
LOC: BFHLAB 15:37
PROVIDERS: PCP Family Medicine; Referring Provider Family Medicine; Visit Provider Family Medicine
DX: I10 Essential (primary) hypertension (principal); E11.9 Type 2 diabetes mellitus without complications; E87.79 Other fluid overload; E03.9 Hypothyroidism, unspecified
CPT/HCPCS: 36415; 80053; 80061; 84443; 85025

== ENCOUNTER → 2024-08-06 | Outpatient (CLI) | payer OTHER, SELFPAY ==
--- NOTE | 2024-08-06 09:19 | ART_ITS ---
Reason For Study Reason For Study: Claudicaiton Procedure A bilateral lower extremity continuous wave Doppler with analog waveform analysis,segmental pressures,and ankle brachial indexes without exercise. Left Segmental Pressures Left brachial= 150mmHg. Left posterior tibial artery = 163mmHg. Left dorsalis pedis artery = 156mmHg. Left digit = 127 mmHg. The left dorsalis pedis waveforms are triphasic. The left posterior tibial artery waveforms are triphasic. Right Segmental Pressures Right brachial= 150mmHg. Right posterior tibial artery = 157mmHg. Right dorsalis pedis artery = 163mmHg. Right digit = 154 mmHg. The right dorsalis pedis waveforms are triphasic. The right posterior tibial artery waveforms are triphasic. Indices The right ankle brachial index by the dorsalis pedis is 1.09. The right ankle brachial index by the posterior tibial artery is 1.05. The right digital-brachial index is 1.03. The left ankle brachial index by the dorsalis pedis is 1.04. The left ankle brachial index by the posterior tibial artery is 1.09. The left digital-brachial index is 0.85. VL/Lower Ext Art Exam w/o Exercis Interpretation Summary Right MARKIE 1.09, normal. TBI and Doppler/PVR waveforms of the right leg normal a t rest. Left MARKIE 1.09, normal. TBI and Doppler/PVR waveforms of the left leg normal at rest. Ordering Physician: Bonita Baeza Referring Physician: Nellie Lao Performed By: Shabana Yeager RVT
--- NOTE | 2024-08-06 09:19 | VDLE_ITS ---
Reason For Study Reason For Study: Bilateral leg swelling RIGHT LEFT CFV is compressible, spontaneous, phasic, competent CFV is compressible, spontaneous, phasic, competent, and demonstrates normal augmentation. and demonstrates normal augmentation. FV is compressible, spontaneous, phasic, competent FV is compressible, spontaneous, phasic, competent and demonstrates normal augmentation. and demonstrates normal augmentation. POP V is compressible, spontaneous, phasic, competent POP V is compressible, spontaneous, phasic, competent and demonstrates normal augmentation. and demonstrates normal augmentation. T/P Trunk is compressible. T/P Trunk is compressible. PTV is compressible. PTV is compressible. RT PerV is compressible. LT PerV is compressible. SFJ is competent and measures 0.86 cm. SFJ is INCOMPETENT and measures 1.16 cm. GSV proximal thigh measures 0.76 x 0.81 cm. GSV proximal thigh measures 0.52 x 0.53 cm. GSV above knee is competent. GSV above knee is competent. GSV at knee measures 0.46 x 0.43 cm. GSV at knee measures 0.52 x 0.52 cm. GSV below knee is INCOMPETENT for greater than 0.5 GSV below knee is INCOMPETENT for greater than 0.5 seconds. seconds. ASV from junction is INCOMPETENT for greater than 0.5 INCOMPETENT casino slot supervisor noted 18 cm above medial seconds and measures 0.63 x 0.66 cm. malleolus. SSV mid calf is competent and measures 0.21 x 0.22 SSV mid calf is INCOMPETENT for greater than 0.5 cm. seconds and measures 0.36 x 0.44 cm. Procedure This is a venous duplex using B-mode, color flow and spectral Doppler. Exam performed in department. Patient was scanned in reverse Trendelenburg position during reflux assessment. VL/Venous Duplex US - Toni Extrem Interpretation Summary Deep veins of the bilateral lower extremities are patent and compressible segme ntally. There is no evidence of bilateral lower extremity deep vein thrombosis. The bilateral great saphenous veins appea r patent and compressible segmentally. Positive for reflux in the right great saphenous vein below the knee, accessory saphenous vein from junction. Positive for reflux in the left saphenofemoral junction great saphenous vein be low the knee, small saphenous vein, and casino slot supervisor vein in calf Ordering Physician: Bonita Baeza Referring Physician: Nellie Lao Performed By: Shabana Yeager RVT
--- NOTE | 2024-08-06 11:29 | RAD_ITS ---
PROCEDURE: Lumbar spine radiographs, three views 08/06/2024 REASON FOR EXAM: RADICULOPATHY. Pain and stiffness for 3 months TECHNIQUE: Three views of the lumbar spine were obtained. COMPARISON: None available FINDINGS: Three views of the lumbar spine were obtained. The bones are osteopenic. SI joints intact. 4 mm right pelvic phleboliths. No acute fracture or focal subluxation of the lumbar spine. Mild/moderate multilevel degenerative disc and facet disease in the lumbar spine, greatest at L5-S1. RAD/Lumbar Spine 2 or 3 Views IMPRESSION: Osteopenia. No acute bony abnormality of the lumbar spine. Mild/moderate multilevel degenerative disc and facet disease in the lumbar spin e, greatest at the L5-S1 level. If there is persistent pain or clinical concern, MRI evaluation may be considered. Reading Location: [facility]
== END | disposition home or self-care (01) ==
PROVIDERS: PCP Family Medicine; Referring Provider Physician Assistant; Visit Provider Physician Assistant
DX: I73.9 Peripheral vascular disease, unspecified (principal); I87.2 Venous insufficiency (chronic) (peripheral); R60.9 Edema, unspecified; I87.8 Other specified disorders of veins; M54.10 Radiculopathy, site unspecified
CPT/HCPCS: 72100; 93923; 93970

== ENCOUNTER → 2024-08-19 | Outpatient (CLI) | payer OTHER, SELFPAY ==
--- NOTE | 2024-08-19 12:15 | ECHOCS_ITS ---
Reason For Study Reason For Study: DYSPNEA Procedure This was a 2D Doppler, Color Flow transthoracic echocardiogram. The study was technically difficult. Contrast injection was performed. Exam performed in department. Left Ventricle Normal LV size. The left ventricular ejection fraction is 60 %. No regional wall motion abnormalities noted. Right Ventricle Normal right ventricle. Normal systolic function. Atria Normal left atrium. Normal right atrium. Mitral Valve Normal mitral valve. Tricuspid Valve Normal tricuspid valve. Great Vessels Normal aortic root. Pericardium/Pleural No pericardial effusion. Medication 22 gauge I.V. with prn adaptor inserted into right arm. Diluted definity 4ml given slow IV push to enhance endocardial definition. MMode/2D Measurements & Calculations LAV(MOD-bp): 49.5 ml LA A4 area: 19.2 cm2 RA A4 area: 15.9 cm2 LAV(MOD-bp) Indexed: 17.9 ml/m2 LAV(MOD-sp2): 38.8 ml LAV(MOD-sp4): 57.5 ml Time Measurements MV dec time: 0.23 sec Doppler Measurements & Calculations MV E max vitor: 72.4 cm/sec Lat Peak E' Vitor: 13.8 cm/sec Med Peak E' Vitor: 7.6 cm/sec MV A max vitor: 77.5 cm/sec E/E' lat: 5.3 E/E' med: 9.5 MV E/A: 0.93 MV V2 max: 85.8 cm/sec Ao V2 max: 235.7 cm/sec MV max P.9 mmHg MV dec slope: 313.7 cm/sec2 Ao max P.2 mmHg MV V2 mean: 64.4 cm/sec Ao V2 mean: 154.8 cm/sec MV mean P.7 mmHg Ao mean P.1 mmHg MV V2 VTI: 26.3 cm Ao V2 VTI: 52.4 cm AV (velocity ratio): 0.49 LV V1 max: 106.5 cm/sec LV V1 max P.5 mmHg LV V1 mean P.8 mmHg LV V1 mean: 80.7 cm/sec LV V1 VTI: 25.9 cm ECHO/Echo Complete W/ Contrast Interpretation Summary The left ventricular ejection fraction is 60 %. Normal LV size. Contrast injection was performed. Ordering Physician: Kuldip Etienne Referring Physician: Helena Chapman Performed By: Dionna Cruz RCS
== END | disposition home or self-care (01) ==
LOC: CVS 12:12
PROVIDERS: PCP Family Medicine; Referring Provider Nurse Practitioner Acute Care; Visit Provider Nurse Practitioner Acute Care
DX: R06.02 Shortness of breath (principal)
CPT/HCPCS: 93306; Q9957; A4216; C8929

== ENCOUNTER → 2024-09-24 | Outpatient (CLI) | payer OTHER, SELFPAY ==
[2024-09-24 12:56] LABS: Microalbumin,Random Urine 25.7 mg/L (NO RANGE EST.); Microalbumin:Creatinine Ratio 120.7 mg/g CRE
[2024-09-24 13:13] LABS: AST(SGOT) 24 U/L (<=31); Alanine Aminotransfer ALT/SGPT 27 U/L (<=34); Albumin, Serum 3.9 g/dL (3.4-4.8); Alkaline Phosphatase 104 U/L (35-104); Anion Gap 14 (5-15); BUN 15 mg/dL (4-19); BUN/Creat Ratio 17.8 RATIO (10-20); Calcium,Total 9.6 mg/dL (7.6-11.0); Chloride 99 mmol/L (98-108); Cholesterol 174 mg/dL (<=200); Creatinine, Serum 0.82 mg/dL (0.70-1.20); EST Glomerular Filtration Rate 82 (>60); Glucose 205 mg/dL (70-99); High Density Lipoprotein 41 mg/dL; Low Density Lipoprotein Calc. 99 mg/dL; Potassium 3.8 mmol/L (3.3-5.1); Protein, Total 7.9 g/dL (5.9-8.4); Sodium Level 135 mmol/L (133-145); Total Bilirubin 0.69 mg/dL (0.00-1.30); Triglycerides 169 mg/dL; Very Low Density Lipoprotein 34 mg/dL (5-40); Vitamin B12 474 pg/mL (180-914); Vitamin D,25 Hydroxy 26.2 ng/mL (30-100); cholesterol:hdl ratio screen 4.21
== END | disposition home or self-care (01) ==
LOC: MTLAB 10:10
PROVIDERS: PCP Family Medicine; Referring Provider Family Medicine; Visit Provider Family Medicine
DX: E11.9 Type 2 diabetes mellitus without complications (principal); I10 Essential (primary) hypertension; E03.9 Hypothyroidism, unspecified
CPT/HCPCS: 36415; 80053; 80061; 82043; 82306; 82570; 82607; 84443

== ENCOUNTER → 2024-10-01 | Outpatient (CLI) | payer OTHER, SELFPAY ==
--- NOTE | 2024-10-01 10:43 | BI_ITS ---
EXAM: SCRN MAMM (CAD)W/ANDRES BILAT 10/01/2024 CLINICAL HISTORY: F, Age 59 y/o , SCREENING TECHNIQUE: Bilateral screening digital breast tomosynthesis with 2D and 3D images. Computer aided detection. COMPARISON: Prior exam(s) dated 01/01/2018. FINDINGS: Limited evaluation of the right breast due to decreased range of motion of the right upper extremity. TISSUE DENSITY: The breast tissue is composed of scattered area of fibroglandular density. Bilateral Breast Mammographic Findings: No significant masses, calcifications or other abnormalities are identified. BI/SCRN MAMM (CAD)W/ANDRES BILAT IMPRESSION: Right Breast: BIRADS 1 NEGATIVE. Left Breast: BIRADS 1 NEGATIVE. OVERALL FINAL ASSESSMENT: BIRADS 1 NEGATIVE. RECOMMENDATION: Routine annual follow-up in 1 Year A letter with findings and recommendations will be mailed to the patient. Reading Location: [id number]
== END | disposition home or self-care (01) ==
LOC: OPBI 10:40
PROVIDERS: PCP Family Medicine; Referring Provider Family Medicine; Visit Provider Family Medicine
DX: Z12.31 Encounter for screening mammogram for malignant neoplasm of breast (principal)
CPT/HCPCS: 77063; 77067

== ENCOUNTER → 2024-10-15 | Outpatient (CLI) | payer OTHER, SELFPAY | END | disposition home or self-care (01) | PROVIDERS: PCP Family Medicine; Referring Provider Student in an Organized Health Care Education/Training Program; Visit Provider Student in an Organized Health Care Education/Training Program | DX: M54.16 Radiculopathy, lumbar region (principal); M51.369 Other intervertebral disc degeneration, lumbar region without mention of lumbar back pain or lower extremity pain ==